=== PATIENT | female | born 1985 | race Caucasian/White ===

== ENCOUNTER 2016-11-21 10:35 | Day surgery (SDC) | payer BC, SELFPAY ==
[~2016-11-21 10:35] MED LIST: Lactated Ringers 1,000 ML IV SCH; Lidocaine 1%/Sod Bicarbonate in NS 8.4% 1 ML Syringe IV PRN; Sodium Chloride 0.9% 10 ML Syringe FLUSH PRN
[2016-11-21] MEDS ORDERED: Ketorolac 30 MG/ML SDV ONE (10:37)
[2016-11-21] MEDS ORDERED: Lidocaine 1% 6 ML ONE (10:37)
[2016-11-21] MEDS ORDERED: Lactated Ringers 1,000 ML ONE (10:37)
[2016-11-21] MEDS ORDERED: Ondansetron 4 MG/2 ML SDV ONE (10:37)
[2016-11-21] MEDS ORDERED: Dexamethasone 4 MG/ML 5 ML MDV ONE (10:37)
[2016-11-21] MEDS ORDERED: ceFAZolin 1 GM Vial ONE (10:37)
[2016-11-21] MEDS ORDERED: Propofol 200 MG/20 ML SDV ONE (10:39)
[2016-11-21] MEDS ORDERED: Midazolam 1 MG/ML 2 ML SDV ONE (10:39)
[2016-11-21] MEDS ORDERED: fentaNYL 100 MCG/2 ML SDV ONE ×2 (10:40→13:42)
[2016-11-21] MEDS ORDERED: HYDROmorphone 1 MG/ML Syringe ONE (10:40)
--- NOTE | 2016-11-21 11:13 | PCM.PREANE ---
Preanesthetic Assessment - Anesthesia/Transfusion/Family Hx Anesthesia History: Prior Anesthesia Without Reaction Type of Anesthesia Reaction: Unknown Family History of Anesthesia Reaction: No Transfusion History: Unknown Type of Transfusion Reactions: Reports: Other (see below) - Review of Systems General: Other (seasonal allergies) Pulmonary: Other (S/P upper respirator infection, antibx finished) Cardiovascular: Other Gastrointestinal: No symptoms Neurological: Other (back/neck pain, migraines) Other: Reports: Depression, Anxiety - Physical Assessment NPO Status Date: 11/20/16 NPO Status Time: 22:30 Pulse: 71 O2 Sat by Pulse Oximetry: 96 Respiratory Rate: 16 Blood Pressure: 126/84 Temperature: 37.2 C Height: 1.68 m Weight: 77.111 kg ASA Class: 2 Mental Status: Alert & Oriented x3 Airway Class: Mallampati = 1 Dentition: Reports: Normal Dentition Thyro-Mental Finger Breadths: 3 Mouth Opening Finger Breadths: 3 ROM/Head Extension: Full Lungs: Clear to auscultation, Normal respiratory effort Cardiovascular: Regular Rate, Regular Rhythm - Lab Values: Laboratory Last Values Urine HCG, Qual Negative (NEGATIVE) 11/21/16 10:45 MRSA (PCR) Negative 11/16/16 12:04 - Allergies Allergies/Adverse Reactions: Allergies Allergy/AdvReac Type Severity Reaction Status Date / Time azithromycin Allergy Hives Verified 11/20/16 19:02 - Blood Blood Available: No Product(s) Available: None - Anesthesia Plan Pre-Op Medication Ordered: None - Acknowledgements Anesthesia Type Planned: General Anesthesia Pt an Appropriate Candidate for the Planned Anesthesia: Yes Alternatives and Risks of Anesthesia Discussed w Pt/Guardian: Yes Pt/Guardian Understands and Agrees with Anesthesia Plan: Yes PreAnesthesia Questionnaire - Past Health History Medical/Surgical History: Denies Medical/Surgical History HEENT History: Reports: Impaired vision Other HEENT History: wears glasses Cardiovascular History: Reports: None Respiratory History: Reports: Asthma Genitourinary History: Reports: None [employer]ER History: Reports: Musculoskeletal History: Reports: Arthritis, Back pain, chronic Neurological History: Reports: Migraines Psychiatric History: Reports: Anxiety, Depression Endocrine/Metabolic History: Reports: None Hematologic History: Reports: None Immunologic History: Reports: None Oncologic (Cancer) History: Reports: None Dermatologic History: Reports: None - Past Surgical History Head Surgeries/Procedures: Reports: None GI Surgical History: Reports: Cholecystectomy, Hernia, inguinal Female Surgical History: Reports: section Musculoskeletal Surgical History: Reports: Other (see below) Other Musculoskeletal Surgeries/Procedures:: finger surgery - SUBSTANCE USE Smoking Status *Q: Never Smoker Second Hand Smoke Exposure: No Recreational Drug Use History: No - HOME MEDS Home Medications: Home Meds Citalopram [Celexa] 15 mg PO DAILY 11/20/16 [History] Hydrocodone/Acetaminophen [Hydrocodon-Acetaminophn 10-325] 1 tab PO Q6H PRN [History] buPROPion HCl [Wellbutrin Xl] 300 mg PO DAILY 11/20/16 [History] valACYclovir [Valtrex] 500 mg PO DAILY PRN 11/20/16 [History] Aspirin 325 mg PO BID #84 tablet 11/21/16 [Rx] Hydrocodone/Acetaminophen [[place] 5-325 Tablet] 1 - 2 each PO Q6H PRN #20 tablet 11/21/16 [Rx] - CURRENT (IN HOUSE) MEDS Current Meds: Current Medications Lactated Ringer's (Ringers, Lactated) 1,000 mls @ 125 mls/hr IV ASDIRECTED DARCI Stop: 11/21/16 23:00 Lidocaine/Sodium Bicarbonate (Buffered Lidocaine 1% In Ns 8.4%) 0.25 ml IV ONETIME PRN PRN Reason: Prior to IV Start Stop: 11/21/16 18:00 Sodium Chloride (Saline Flush) 10 ml FLUSH ASDIRECTED PRN PRN Reason: Keep Vein Open Stop: 11/21/16 18:00 Discontinued Medications Cefazolin Sodium (Ancef) Confirm Administered Dose 2 gm .ROUTE .STK-MED ONE Stop: 11/21/16 10:38 Dexamethasone (Dexamethasone) Confirm Administered Dose 20 mg .ROUTE .STK-MED ONE Stop: 11/21/16 10:38 Fentanyl (Sublimaze) Confirm Administered Dose 100 mcg .ROUTE .STK-MED ONE Stop: 11/21/16 10:41 Hydromorphone HCl (Dilaudid) Confirm Administered Dose 1 mg .ROUTE .STK-MED ONE Stop: 11/21/16 10:41 Lactated Ringer's (Ringers, Lactated) 1,000 mls @ 125 mls/hr IV ASDIRECTED DARCI Stop: 10/31/16 23:00 Lidocaine HCl (Xylocaine-Mpf 1%) Confirm Administered Dose 6 mls @ as directed .ROUTE .STK-MED ONE Stop: 11/21/16 10:38 Lactated Ringer's (Ringers, Lactated) Confirm Administered Dose 1,000 mls @ as directed .ROUTE .STK-MED ONE Stop: 11/21/16 10:38 Ketorolac Tromethamine (Toradol) Confirm Administered Dose 30 mg .ROUTE .STK- MED ONE Stop: 11/21/16 10:38 Lidocaine/Sodium Bicarbonate (Buffered Lidocaine 1% In Ns 8.4%) 0.25 ml IV ONETIME PRN PRN Reason: Prior to IV Start Stop: 10/31/16 18:00 Midazolam HCl (Versed 1 Mg/Ml) Confirm Administered Dose 2 mg .ROUTE .STK-MED ONE Stop: 11/21/16 10:40 Ondansetron HCl (Zofran) Confirm Administered Dose 4 mg .ROUTE .STK-MED ONE Stop: 11/21/16 10:38 Propofol (Diprivan 20 Ml) Confirm Administered Dose 200 mg .ROUTE .STK-MED ONE Stop: 11/21/16 10:40 Sodium Chloride (Saline Flush) 10 ml FLUSH ASDIRECTED PRN PRN Reason: Keep Vein Open Stop: 10/31/16 18:00
[2016-11-21] MEDS ORDERED: EPINEPHrine 1:1000 1 MG/ML 30 ML MDV ONE (11:49)
[2016-11-21] MEDS ORDERED: Bupivacaine 0.25% 30 ML SDV ONE (11:50)
[2016-11-21] MEDS ORDERED: Ondansetron 4 MG/2 ML SDV IVPUSH PRN (13:10)
[2016-11-21] MEDS ORDERED: Meperidine PF 50 MG/ML Syringe IVPUSH PRN (13:10)
[2016-11-21] MEDS ORDERED: HYDROmorphone 0.5 MG/0.5 ML Syringe IVPUSH PRN (13:10)
[2016-11-21] MEDS ORDERED: diphenhydrAMINE 50 MG/ML SDV IVPUSH PRN (13:10)
[2016-11-21] MEDS ORDERED: Phenylephrine 1 MG in Sodium Chloride 0.9% 10 ML IV SCH (13:15)
[2016-11-21] MEDS ORDERED: Phenylephrine/Normal Saline 100 MCG/ML 10 ML Syringe ONE (13:21)
[2016-11-21] MEDS: fentaNYL 100 MCG/2 ML SDV IVPUSH PRN ×2 (13:52→14:05)
--- NOTE | 2016-11-21 13:56 | PCM.POSTAN ---
POST ANESTHESIA ASSESSMENT - MENTAL STATUS Mental Status: alert - VITAL SIGNS Pulse Rate: 82 SaO2: 99 Resp Rate: 14 Blood Pressure: 128/82 Temperature: 36.8 C - RESPIRATORY Respiratory Status: respiratory rate WNL, airway patent, O2 saturation stable, supplemental oxygen - CARDIOVASCULAR CV Status: pulse rate WNL, blood pressure stable - GASTROINTESTINAL GI Status: no symptoms - POST OP HYDRATION Hydration Status: adequate & stable
--- NOTE | 2016-11-21 14:42 | PCM48HPAN ---
Post Anesthesia Note - EVALUATION WITHIN 48HRS OF ANESTHETIC Vital Signs in Normal Range: Yes Patient Participated in Evaluation: Yes Respiratory Function Stable: Yes Airway Patent: Yes Cardiovascular Function Stable: Yes Hydration Status Stable: Yes Pain Control Satisfactory: Yes Nausea and Vomiting Control Satisfactory: Yes Mental Status Recovered: Yes - COMMENTS/OBSERVATIONS Free Text/Narrative:: Patient awake and responsive to questions appropriately. Patient denies any complaints at this time, and expresses satisfaction with her care thus far. Pain control is adequate at this time.
[2016-11-21] MEDS ORDERED: Acetaminophen/HYDROcodone 325-5 MG Tab PO ONE (15:43)
[2016-11-21 16:18] VITALS: BP 103/76
--- NOTE | 2016-11-27 08:29 | PCM.OPNOTE ---
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
--- NOTE | 2016-11-27 10:18 | OR ---
DATE OF OPERATION: 11/21/2016 SURGEON: Daniele Valero MD OPERATION PERFORMED: Right knee video arthroscopy with chondroplasty of patella and plica resection. PREOPERATIVE DIAGNOSIS: Right knee patellar chondromalacia. POSTOPERATIVE DIAGNOSIS: Right knee patellar chondromalacia with grade 1 chondromalacia of the lateral tibial plateau and plica. ANESTHESIA: General LMA with local. ANESTHESIA PROVIDER: Emelyn Koch CRNA. HOLE DIGGER: Suki Ritter PA-C ESTIMATED BLOOD LOSS: Less than 5 mL. COMPLICATIONS: None. CONDITION: Stable. DESCRIPTION OF PROCEDURE: The patient was identified in the preop holding area, proper site was marked and identified by the surgeon. The patient was taken back to the operating theater, where after adequate anesthesia, the patient's right lower extremity was placed in a C-clamp conti after a nonsterile tourniquet applied and left lower extremity was placed in a well-leg conti. Right lower extremity was then sterilely prepped and draped in the usual sterile fashion. OR time-out was performed. The patient received 2 g IV Ancef. At this time, right lower extremity was exsanguinated. Tourniquet was insufflated to 250 mmHg. Standard anterolateral portal incision was made. The scope trocar was introduced. Cursory examination showed significant grade 3 chondromalacia of the inferior pole and the medial facet of the patella. There was no real lateral facet and some grade 2/3 chondromalacia of the lateral patellar facet. Most of it was inferior and medial. At this time, there was also noted to be a plica on the medial side. Attention was turned to the medial compartment. There were no loose or foreign bodies in the medial gutter. Spinal needle was used for creation of an anteromedial portal. Probe was introduced. The medial meniscus was found to be intact. There were no signs of chondromalacia at the medial compartment. ACL was found to be intact in the notch. Lateral compartment showed some grade 1 changes of the lateral tibial plateau, but otherwise no lateral meniscus tear, although chondromalacia was noted. At this time, a chondroplasty of the patella was performed back to a smooth border with no loose flaps. The plica was also resected at this time since we were there. At this time, excess saline was drained from the knee, 0.25% Marcaine was used for anesthetization around the portal sites, 3-0 nylon was used for closure of the skin, and the patient was placed in a sterile soft dressing. Afterwards, I did discuss with the that secondary to the region of the chondromalacia, the patient may not be a candidate for any realignment surgery and she may need a patellofemoral arthroplasty in the future should she continue to have pain. MMODAL /[id number]
== END 2016-11-21 16:10 | disposition home or self-care (01) ==
LOC: JD.SDS 10:35
PROVIDERS: ATTEND Orthopaedic Surgery
PROC: 0SBC4ZZ Excision of Right Knee Joint, Percutaneous Endoscopic Approach (ICD-10-PCS; principal; 2016-11-21)
DX: M22.41 Chondromalacia patellae, right knee (principal); M67.51 Plica syndrome, right knee; Z01.812 Encounter for preprocedural laboratory examination
CPT/HCPCS: 29875; 81025; 87641; A9270; J0171; J0690; J1100; J1170; J1885; J2250; J2405; J3010; J7120; 01400; J2704; J3490